=== PATIENT | male | born 1975 | race Caucasian/White ===

== ENCOUNTER 2017-12-07 13:03 | Emergency (ER) | payer MEDICAID ==
[2017-12-07] MEDS: morphine 2 MG INJ IV (13:55)
[2017-12-07] MEDS: LIDOCAINE/MYLANTA 40 ML BTL PO (13:55)
[2017-12-07] MEDS: ONDANSETRON 4 MG INJ IV (13:55)
[2017-12-07] MEDS: FAMOTIDINE 20 MG TAB PO (13:55)
[2017-12-07] MEDS: SOD CHLORIDE 0.9% 1,000 ML IV (14:00)
[2017-12-07 14:04] LABS: ADD MAN DIFF? NO
[2017-12-07 14:07] LABS: WHITE BLOOD COUNT 8.7 10^3/ul (4.8-10.8)
[2017-12-07 14:07] LABS: BASOPHILS % 0.1 % (0.0-2.0); EOSINOPHILS # 0.1 10^3/ul (0.0-0.5); EOSINOPHILS % 0.6 % (0.0-7.0); HEMOGLOBIN 14.4 g/dl (14.0-18.0); LYMPHOCYTES # 1.8 10^3/ul (0.8-2.9); LYMPHOCYTES % 20.2 % (15.0-51.0); MEAN CORPUSCULAR HEMOGLOBIN 29.8 pg (29.0-33.0); MEAN CORPUSCULAR HGB CONC 32.7 g/dl (32.0-37.0); MEAN CORPUSCULAR VOLUME 90.9 fl (82.0-101.0); MEAN PLATELET VOLUME 9.8 fl (7.4-10.4); MONOCYTE # 0.6 10^3/ul (0.3-0.9); NEUTROPHIL # 6.3 10^3/ul (1.6-7.5); NEUTROPHILS % 71.5 % (39.0-77.0); PLATELET COUNT 273 10^3/UL (140-415); RED BLOOD COUNT 4.84 10^6/ul (4.70-6.10); RED CELL DISTRIBUTION WIDTH 12.9 % (11.5-14.5)
[2017-12-07 14:11] LABS: ADD UMIC YES; UR ASCORBIC ACID NEGATIVE (NEGATIVE); UR BILIRUBIN (Dip) NEGATIVE (NEGATIVE); UR BLOOD (Dip) NEGATIVE (NEGATIVE); UR CLARITY CLEAR (CLEAR); UR COLOR YELLOW (YELLOW); UR GLUCOSE (Dip) NEGATIVE (NEGATIVE); UR KETONES (Dip) NEGATIVE (NEGATIVE); UR LEUKOCYTE ESTERASE (Dip) NEGATIVE Leu/ul (NEGATIVE); UR MUCUS FEW /HPF (NONE SEEN); UR NITRITE (Dip) NEGATIVE (NEGATIVE); UR RBC 0 /HPF (0-5); UR SPECIFIC GRAVITY (Dip) 1.012 (1.003-1.030); UR TOTAL PROTEIN (Dip) 1+ mg/dl (NEGATIVE); UR UROBILINOGEN (Dip) NEGATIVE (NEGATIVE); UR WBC 2 /HPF (0-5)
[2017-12-07 14:27] LABS: ALANINE AMINOTRANSFERASE 32 IU/L (13-69); ALBUMIN 4.3 g/dl (3.3-4.9); ALBUMIN/GLOBULIN RATIO 1.13; ALKALINE PHOSPHATASE 76 IU/L (42-121); ANION GAP 15 (8-16); ASPARTATE AMINO TRANSFERASE 23 IU/L (15-46); BLOOD UREA NITROGEN 20 mg/dl (7-20); CALCIUM 9.6 mg/dl (8.4-10.2); CARBON DIOXIDE 29 mmol/L (21-31); CHLORIDE 103 mmol/L (97-110); CREATININE 1.37 mg/dl (0.61-1.24); GLUCOSE 105 mg/dl (70-220); LIPASE 121 U/L (23-300); POTASSIUM 4.1 mmol/L (3.5-5.1); SODIUM 143 mmol/L (135-144); TOTAL PROTEIN 8.1 g/dl (6.1-8.1)
== END 2017-12-07 15:43 | disposition home or self-care (01) ==
LOC: FTE 13:03
DX: K29.70 Gastritis, unspecified, without bleeding (principal); I10 Essential (primary) hypertension
CPT/HCPCS: 74176; 80053; 81001; 83690; 85025; 96374; 96375; 99285-25

== ENCOUNTER 2017-12-09 15:12 | Emergency (ER) | payer MEDICAID ==
[2017-12-09] MEDS: KETOROLAC 30 MG INJ IM (16:56)
== END 2017-12-09 17:36 | disposition home or self-care (01) ==
LOC: FTE 15:12
DX: K59.00 Constipation, unspecified (principal); I10 Essential (primary) hypertension
CPT/HCPCS: 96372; 99284-25

== ENCOUNTER 2018-12-18 01:05 | Emergency (ER) | payer MEDICAID, OTHER ==
[2018-12-18] MEDS: HYDROCODONE/APAP (5/325) TAB PO ×2 (02:01→02:55)
== END 2018-12-18 02:57 | disposition home or self-care (01) ==
LOC: FTE 01:05
DX: K08.89 Other specified disorders of teeth and supporting structures (principal)
CPT/HCPCS: 99283; Z7610